=== PATIENT | male | born 1975 | race Caucasian/White ===

== ENCOUNTER 2017-02-09 17:49 | Emergency (ER) | payer OTHER ==
[~2017-02-09] VITALS: Ht 185.4 cm; Wt 102.0 kg
[2017-02-09] MEDS ORDERED: NAPROSYN500 MG PO (19:39)
[2017-02-09 19:50] VITALS: BP 158/77
== END 2017-02-09 19:50 | disposition home or self-care (01) | DRG 605 ==
LOC: ED 17:49
PROC: 0HQ1XZZ Repair Face Skin, External Approach (ICD-10-PCS; principal; 2017-02-09)
DX: S01.81XA Laceration without foreign body of other part of head, initial encounter (principal); S43.401A Unspecified sprain of right shoulder joint, initial encounter; V86.55XA Driver of 3- or 4- wheeled all-terrain vehicle (ATV) injured in nontraffic accident, initial encounter